=== PATIENT | male | born 1970 | race Caucasian/White ===

== ENCOUNTER 2016-09-06 12:10 | Inpatient (IN) | payer OTHER ==
[2016-09-06 13:25] VITALS: BMI 25.8
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
[2016-09-06] MEDS ORDERED: P-EPHED 60MG/TRIPROLIDI 2.5MG TABLET PO PRN (15:18)
[2016-09-06] MEDS ORDERED: guaiFENesin/D-METHORPHAN HB 10 ML UNIT-DOSE CUPS PO PRN (15:18)
[2016-09-06] MEDS ORDERED: MENTHOL/PHENOL 1 EACH UD MM PRN (15:18)
[2016-09-06] MEDS ORDERED: IBUPROFEN 400 MG TABLET (FP) PO PRN (15:18)
[2016-09-06] MEDS ORDERED: MAGNESIUM CITRATE 300 ML BOTTLE PO PRN (15:18)
[2016-09-06] MEDS ORDERED: MAGNESIUM HYDROX 2400MG/30ML ORAL SUSPENSION 30 ML CUP PO PRN (15:18)
[2016-09-06] MEDS ORDERED: LOPERAMIDE HCL 2 MG CAPSULE PO PRN (15:18)
[2016-09-06] MEDS ORDERED: ACETAMINOPHEN 325 MG TABLET (FP) PO PRN (15:18)
[2016-09-06] MEDS ORDERED: METHADONE HCL 10 MG TABLET (FOR DETOX USE ONLY) PO ONE ×2 (15:38→23:00)
[2016-09-06] MEDS: diazePAM 5 MG TABLET PO PRN ×2 (17:25→22:53)
[2016-09-06] MEDS: OXYMETAZOLINE 0.05% NASAL SOLUTION 15 ML BOTTLE NS SCH (22:52)
[2016-09-06] MEDS: diphenhydrAMINE HCL 50 MG CAPSULE PO PRN (22:53)
[2016-09-06] MEDS: THIAMINE HCL 100 MG TABLET (FP) PO SCH (22:53)
[2016-09-07 02:30] LABS: URINE APPEARANCE CLEAR; URINE BILIRUBIN NEGATIVE (NEGATIVE); URINE BLOOD NEGATIVE (NEGATIVE); URINE COLOR LTYELLOW; URINE GLUCOSE (UA) NEGATIVE (NEGATIVE); URINE KETONE NEGATIVE (NEGATIVE); URINE LEUK ESTERASE NEGATIVE (NEGATIVE); URINE NITRITE NEGATIVE (NEGATIVE); URINE PROTEIN NEGATIVE (NEGATIVE); URINE UROBILINOGEN NEGATIVE E.U./dl (0.2-1.0)
[2016-09-07] MEDS: diazePAM 5 MG TABLET PO PRN ×4 (05:31→22:29)
[2016-09-07] MEDS: MAG HYDROX/AL HYDROX/SIMETH 30 ML UNIT-DOSE CUP PO PRN (05:32)
[2016-09-07] MEDS ORDERED: METHADONE HCL 10 MG TABLET (FOR DETOX USE ONLY) PO ONE (10:00)
[2016-09-07 10:20] LABS: MCHC 33.1 g/dl (32.0-35.9); MEAN CELL VOLUME 90.4 fl (80-96); MEAN PLT VOLUME 10.7 fl (7.5-11.1); PLATELET COUNT 197 K/MM3 (134-434); RDW 14.7 % (11.9-15.9); WHITE BLOOD COUNT 11.7 K/mm3 (4.0-10.0)
[2016-09-07] MEDS: PRENATAL VITAMINS W/ FOLIC ACID TABLET (FP) PO SCH (10:29)
[2016-09-07] MEDS: OXYMETAZOLINE 0.05% NASAL SOLUTION 15 ML BOTTLE NS SCH ×2 (10:29→22:29)
[2016-09-07] MEDS: NICOTINE 21 MG/24 HOURS TOPICAL PATCH TD SCH (10:30)
[2016-09-07 10:59] LABS: ALBUMIN 4.1 g/dl (3.4-5.0); ALK PHOS 119 U/L (45-117); ANION GAP 10 (8-16); BILIRUBIN,TOTAL 0.4 mg/dL (0.2-1.0); CALCIUM 8.8 mg/dL (8.5-10.1); CO2 27 mmol/L (21-32); CREATININE 0.7 mg/dL (0.7-1.3); GLUCOSE,RANDOM 106 mg/dL (74-106); SGOT/AST 39 U/L (15-37); SGPT/ALT 55 U/L (12-78); TOT PROT 7.1 g/dl (6.4-8.2)
--- NOTE | 2016-09-07 12:00 | CONSULT ---
[facility] Psychiatric Consult - Data Date of interview: 09/07/16 Admission source: [facility] Identifying data: This is 46 yo single male,unemployed,undomiciled admitted for detox from Heroin and Xanax. Substance Abuse History: Reports sniffing/IV heroin since 23 yo,5-8 bags daily, Xanax I mg daily since 44 yo.Most recent detox was in July 2016 at [facility]. Medical History: Significant for Hep C,H/O withdrawal Seuzures,H/O Nose fracture. Psychiatric History: Patient reports no previous psychiatric history.No suicidal attemtps,no psychiatric hospitalizations reported.He is c/o sleeping difficulties on and off,specially when he is abstinent.Medicated himself with Heroin to reduce sleeping problems. Physical/Sexual Abuse/Trauma History: denies Mental Status Exam - Mental Status Exam Alert and Oriented to: Time, Place, Person Cognitive Function: Grossly Intact Patient Appearance: Unkempt Mood: Euthymic Affect: Mood Congruent Patient Behavior: Cooperative Speech Pattern: Clear Voice Loudness: Normal Thought Process: Goal Oriented Thought Disorder: Not Present Hallucinations: Denies Suicidal Ideation: Denies Homicidal Ideation: Denies Insight/Judgement: Fair Sleep: Poorly Appetite: Fair Muscle strength/Tone: Normal Gait/Station: Normal Psychiatric Findings - Problem List ([place] 1, 2,3) (1) Opioid dependence with withdrawal Current Visit: Yes Status: Chronic (2) Nicotine dependence Current Visit: Yes Status: Chronic Qualifiers: Nicotine product type: cigarettes Substance use status: uncomplicated Qualified Code(s): F17.210 - Nicotine dependence, cigarettes, uncomplicated (3) Substance-induced sleep disorder Current Visit: Yes Status: Chronic (4) Alcohol dependence Current Visit: Yes Status: Chronic (5) Opioid dependence Current Visit: Yes Status: Chronic - Initial Treatment Plan Initial Treatment Plan: Benadryl 50 mg po hs PRN for insomnia. Will monitor progress.
--- NOTE | 2016-09-07 14:05 | PN ---
S CIWA - CIWA Score Nausea/Vomitin-Mild Nausea/No Vomiting Muscle Tremors: 4-Moderate,w/Arms Extend Anxiety: 3 Agitation: 2 Paroxysmal Sweats: 3 Orientation: 0-Oriented Tacttile Disturbances: 3-Moderate Itch/Numb/Burn Auditory Disturbances: 2-Mild Harshness/Frighten Visual Disturbances: 0-None Headache: 0-None Present CIWA-Ar Total Score: 18 BHS COWS - Scale Resting Pulse: 1= [place] 81-100 Sweatin=Flushed/Facial Moisture Restless Observation: 1= Difficult to Sit Still Pupil Size: 0= Normal to Room Light Bone or Joint Aches: 2= Severe Diffuse Aches Runny Nose/ Eye Tearin= Nasal Congestion GI Upset > 30mins: 1= Stomach Cramp Tremor Observation of Outstretched Hands: 2= Slight Tremor Visible Yawning Observation: 1= 1-2x During Session Anxiety or Irritability: 2=Irritable/Anxious Goose Flesh Skin: 3=Piloerection COWS Score: 16 BHS Progress Note (SOAP) Subjective: Tremors, Constipation, Sweating, Lower Back Ache. Objective: PATIENT A & O X 3, OBSERVED AMBULATING ON UNIT. NO ACUTE DISTRESS. 09/07/16 14:02 Vital Signs Temperature 97.2 F L 09/07/16 13:41 Pulse Rate 72 09/07/16 13:41 Respiratory Rate 20 09/07/16 13:41 Blood Pressure 114/76 09/07/16 13:41 O2 Sat by Pulse Oximetry (%) Laboratory Tests 09/07/16 09/07/16 09/07/16 00:14 06:00 06:00 WBC 11.7 H RBC 3.78 L Hgb 11.3 L Hct 34.2 L MCV 90.4 MCHC 33.1 RDW 14.7 Plt Count 197 MPV 10.7 D Sodium 138 Potassium 4.0 Chloride 101 Carbon Dioxide 27 Anion Gap 10 BUN 14 Creatinine 0.7 Creat Clearance w eGFR > 60 Random Glucose 106 Calcium 8.8 Total Bilirubin 0.4 D AST 39 H D ALT 55 D Alkaline Phosphatase 119 H D Total Protein 7.1 D Albumin 4.1 D Urine Color Ltyellow Urine Appearance Clear Urine pH 5.0 Ur Specific [place] 1.010 Urine Protein Negative Urine Glucose (UA) Negative Urine Ketones Negative Urine Blood Negative Urine Nitrite Negative Urine Bilirubin Negative Urine Urobilinogen Negative Ur Leukocyte Esterase Negative RPR Titer 09/07/16 06:00 WBC RBC Hgb Hct MCV MCHC RDW Plt Count MPV Sodium Potassium Chloride Carbon Dioxide Anion Gap BUN Creatinine Creat Clearance w eGFR Random Glucose Calcium Total Bilirubin AST ALT Alkaline Phosphatase Total Protein Albumin Urine Color Urine Appearance Urine pH Ur Specific [place] Urine Protein Urine Glucose (UA) Urine Ketones Urine Blood Urine Nitrite Urine Bilirubin Urine Urobilinogen Ur Leukocyte Esterase RPR Titer Nonreactive LABS NOTED. Assessment: 09/07/16 14:03 WITHDRAWAL SYMPTOMS. Plan: CONTINUE DETOX. REPEAT CBC ON 09/09/2016 FOR LOW ADMISSION CBC VALUES.
--- NOTE | 2016-09-07 15:52 | EKG ---
Test Reason : Blood Pressure : / mmHG Vent. Rate : 068 BPM Atrial Rate : 068 BPM P-R Int : 146 ms QRS Dur : 084 ms QT Int : 406 ms P-R-T Axes : 052 039 051 degrees QTc Int : 431 ms NORMAL SINUS RHYTHM NORMAL ECG NO PREVIOUS ECGS AVAILABLE Confirmed by CLAUDIA HOPKINS MD ([id number]) on 09/07/2016 3:52:35 PM Referred By: Confirmed By:CLAUDIA HOPKINS MD
[2016-09-07] MEDS: THIAMINE HCL 100 MG TABLET (FP) PO SCH (22:29)
[2016-09-07] MEDS: diphenhydrAMINE HCL 50 MG CAPSULE PO PRN (22:29)
[2016-09-08] MEDS: diazePAM 5 MG TABLET PO PRN ×4 (05:22→22:24)
[2016-09-08] MEDS ORDERED: METHADONE HCL 5 MG TABLET (FOR DETOX USE ONLY) PO ONE (10:00)
[2016-09-08] MEDS: PRENATAL VITAMINS W/ FOLIC ACID TABLET (FP) PO SCH (10:27)
[2016-09-08] MEDS: NICOTINE 21 MG/24 HOURS TOPICAL PATCH TD SCH (10:27)
[2016-09-08] MEDS: OXYMETAZOLINE 0.05% NASAL SOLUTION 15 ML BOTTLE NS SCH ×2 (10:27→22:24)
--- NOTE | 2016-09-08 13:03 | PN ---
S CIWA - CIWA Score Nausea/Vomitin Muscle Tremors: 3 Anxiety: 3 Agitation: 2 Paroxysmal Sweats: 3 Orientation: 0-Oriented Tacttile Disturbances: 3-Moderate Itch/Numb/Burn Auditory Disturbances: 0-None Visual Disturbances: 1-Very Mild Sensitivity Headache: 0-None Present CIWA-Ar Total Score: 18 BHS COWS - Scale Resting Pulse: 1= [place] 81-100 Sweatin=Flushed/Facial Moisture Restless Observation: 1= Difficult to Sit Still Pupil Size: 0= Normal to Room Light Bone or Joint Aches: 2= Severe Diffuse Aches Runny Nose/ Eye Tearin= Nasal Congestion GI Upset > 30mins: 2= Nausea/Diarrhea Tremor Observation of Outstretched Hands: 2= Slight Tremor Visible Yawning Observation: 1= 1-2x During Session Anxiety or Irritability: 2=Irritable/Anxious Goose Flesh Skin: 3=Piloerection COWS Score: 17 S Progress Note (SOAP) Subjective: Nausea, Sweating, Chills, Tremors, Gooseflesh. Objective: PT. A & O X 3, OBSERVED AMBULATING ON UNIT. NO ACUTE DISTRESS. 09/08/16 13:01 Vital Signs Temperature 96.7 F L 09/08/16 09:54 Pulse Rate 82 09/08/16 09:54 Respiratory Rate 18 09/08/16 09:54 Blood Pressure 112/85 09/08/16 09:54 O2 Sat by Pulse Oximetry (%) Laboratory Tests 09/07/16 09/07/16 09/07/16 00:14 06:00 06:00 WBC 11.7 H RBC 3.78 L Hgb 11.3 L Hct 34.2 L MCV 90.4 MCHC 33.1 RDW 14.7 Plt Count 197 MPV 10.7 D Sodium 138 Potassium 4.0 Chloride 101 Carbon Dioxide 27 Anion Gap 10 BUN 14 Creatinine 0.7 Creat Clearance w eGFR > 60 Random Glucose 106 Calcium 8.8 Total Bilirubin 0.4 D AST 39 H D ALT 55 D Alkaline Phosphatase 119 H D Total Protein 7.1 D Albumin 4.1 D Urine Color Ltyellow Urine Appearance Clear Urine pH 5.0 Ur Specific [place] 1.010 Urine Protein Negative Urine Glucose (UA) Negative Urine Ketones Negative Urine Blood Negative Urine Nitrite Negative Urine Bilirubin Negative Urine Urobilinogen Negative Ur Leukocyte Esterase Negative RPR Titer 09/07/16 06:00 WBC RBC Hgb Hct MCV MCHC RDW Plt Count MPV Sodium Potassium Chloride Carbon Dioxide Anion Gap BUN Creatinine Creat Clearance w eGFR Random Glucose Calcium Total Bilirubin AST ALT Alkaline Phosphatase Total Protein Albumin Urine Color Urine Appearance Urine pH Ur Specific [place] Urine Protein Urine Glucose (UA) Urine Ketones Urine Blood Urine Nitrite Urine Bilirubin Urine Urobilinogen Ur Leukocyte Esterase RPR Titer Nonreactive LABS NOTED. Assessment: 09/08/16 13:02 WITHDRAWAL SYMPTOMS. Plan: CONTINUE DETOX.
[2016-09-08] MEDS: MAG HYDROX/AL HYDROX/SIMETH 30 ML UNIT-DOSE CUP PO PRN (19:03)
[2016-09-08] MEDS: THIAMINE HCL 100 MG TABLET (FP) PO SCH (22:24)
[2016-09-08] MEDS: diphenhydrAMINE HCL 50 MG CAPSULE PO PRN (22:25)
[2016-09-09] MEDS: hydrOXYzine PAMOATE 25 MG CAPSULE (FP) PO PRN ×3 (01:30→22:27)
[2016-09-09] MEDS: diazePAM 5 MG TABLET PO PRN ×3 (02:38→11:35)
[2016-09-09] MEDS ORDERED: METHADONE HCL 5 MG TABLET (FOR DETOX USE ONLY) PO ONE (10:00)
[2016-09-09] MEDS: OXYMETAZOLINE 0.05% NASAL SOLUTION 15 ML BOTTLE NS SCH ×2 (10:22→22:25)
[2016-09-09] MEDS: PRENATAL VITAMINS W/ FOLIC ACID TABLET (FP) PO SCH (10:22)
[2016-09-09] MEDS: NICOTINE 21 MG/24 HOURS TOPICAL PATCH TD SCH (10:23)
[2016-09-09 10:42] LABS: BASOPHIL 1.1 % (0-2.0); MCH 29.5 pg (25.7-33.7); MCHC 32.9 g/dl (32.0-35.9); MEAN CELL VOLUME 89.7 fl (80-96); MEAN PLT VOLUME 10.2 fl (7.5-11.1); NEUTROPHILS 52.3 % (42.8-82.8); PLATELET COUNT 174 K/MM3 (134-434); RDW 14.7 % (11.9-15.9); WHITE BLOOD COUNT 8.5 K/mm3 (4.0-10.0)
--- NOTE | 2016-09-09 14:31 | PN ---
S Progress Note (SOAP) Subjective: Interrupted sleep, Nausea, H/A, Tremors, Sweating. Objective: PT. A & O X 2 (DISORIENTED ABOUT DAY / DATE). PT. OBSERVED AMBULATING ON UNIT. NO ACUTE DISTRESS. 09/09/16 14:28 Vital Signs Temperature 98.9 F 09/09/16 13:49 Pulse Rate 86 09/09/16 13:49 Respiratory Rate 20 09/09/16 13:49 Blood Pressure 101/82 09/09/16 13:49 O2 Sat by Pulse Oximetry (%) Laboratory Tests 09/07/16 09/07/16 09/07/16 00:14 06:00 06:00 WBC 11.7 H RBC 3.78 L Hgb 11.3 L Hct 34.2 L MCV 90.4 MCHC 33.1 RDW 14.7 Plt Count 197 MPV 10.7 D Neutrophils % Lymphocytes % Monocytes % Eosinophils % Basophils % Sodium 138 Potassium 4.0 Chloride 101 Carbon Dioxide 27 Anion Gap 10 BUN 14 Creatinine 0.7 Creat Clearance w eGFR > 60 Random Glucose 106 Calcium 8.8 Total Bilirubin 0.4 D AST 39 H D ALT 55 D Alkaline Phosphatase 119 H D Total Protein 7.1 D Albumin 4.1 D Urine Color Ltyellow Urine Appearance Clear Urine pH 5.0 Ur Specific [place] 1.010 Urine Protein Negative Urine Glucose (UA) Negative Urine Ketones Negative Urine Blood Negative Urine Nitrite Negative Urine Bilirubin Negative Urine Urobilinogen Negative Ur Leukocyte Esterase Negative RPR Titer 09/07/16 09/09/16 06:00 09:10 WBC 8.5 RBC 4.17 Hgb 12.3 Hct 37.4 MCV 89.7 MCHC 32.9 RDW 14.7 Plt Count 174 MPV 10.2 Neutrophils % 52.3 Lymphocytes % 32.2 Monocytes % 12.4 H Eosinophils % 2.0 Basophils % 1.1 Sodium Potassium Chloride Carbon Dioxide Anion Gap BUN Creatinine Creat Clearance w eGFR Random Glucose Calcium Total Bilirubin AST ALT Alkaline Phosphatase Total Protein Albumin Urine Color Urine Appearance Urine pH Ur Specific [place] Urine Protein Urine Glucose (UA) Urine Ketones Urine Blood Urine Nitrite Urine Bilirubin Urine Urobilinogen Ur Leukocyte Esterase RPR Titer Nonreactive LABS NOTED. RESULTS OF REPEAT CBC DRAWN 09/09/2016 NOTED. NO NEED FOR FURTHER ACTION AT THIS TIME. 09/09/16 14:30 Assessment: 09/09/16 14:29 WITHDRAWAL SYMPTOMS. 09/09/16 14:31 Plan: CONTINUE DETOX.
[2016-09-09] MEDS: THIAMINE HCL 100 MG TABLET (FP) PO SCH (22:26)
[2016-09-10] MEDS: hydrOXYzine PAMOATE 25 MG CAPSULE (FP) PO PRN ×4 (05:32→18:55)
[2016-09-10] MEDS ORDERED: METHADONE HCL 10 MG TABLET (FOR DETOX USE ONLY) PO ONE (10:00)
[2016-09-10] MEDS: PRENATAL VITAMINS W/ FOLIC ACID TABLET (FP) PO SCH (10:23)
[2016-09-10] MEDS: OXYMETAZOLINE 0.05% NASAL SOLUTION 15 ML BOTTLE NS SCH ×2 (10:23→22:11)
[2016-09-10] MEDS: NICOTINE 21 MG/24 HOURS TOPICAL PATCH TD SCH (11:04)
--- NOTE | 2016-09-10 12:45 | PN ---
BHS Progress Note (SOAP) Subjective: Interrupted sleep, weak, anxious, sweating Objective: 09/10/16 12:42 Last Vital Signs Temp Pulse Resp BP Pulse Ox 96.4 F L 94 H 18 131/93 09/10/16 11:04 09/10/16 11:04 09/10/16 11:04 09/10/16 11:04 Laboratory Tests 09/07/16 09/07/16 09/07/16 00:14 06:00 06:00 WBC 11.7 H RBC 3.78 L Hgb 11.3 L Hct 34.2 L MCV 90.4 MCHC 33.1 RDW 14.7 Plt Count 197 MPV 10.7 D Neutrophils % Lymphocytes % Monocytes % Eosinophils % Basophils % Sodium 138 Potassium 4.0 Chloride 101 Carbon Dioxide 27 Anion Gap 10 BUN 14 Creatinine 0.7 Creat Clearance w eGFR > 60 Random Glucose 106 Calcium 8.8 Total Bilirubin 0.4 D AST 39 H D ALT 55 D Alkaline Phosphatase 119 H D Total Protein 7.1 D Albumin 4.1 D Urine Color Ltyellow Urine Appearance Clear Urine pH 5.0 Ur Specific [place] 1.010 Urine Protein Negative Urine Glucose (UA) Negative Urine Ketones Negative Urine Blood Negative Urine Nitrite Negative Urine Bilirubin Negative Urine Urobilinogen Negative Ur Leukocyte Esterase Negative RPR Titer 09/07/16 09/09/16 06:00 09:10 WBC 8.5 RBC 4.17 Hgb 12.3 Hct 37.4 MCV 89.7 MCHC 32.9 RDW 14.7 Plt Count 174 MPV 10.2 Neutrophils % 52.3 Lymphocytes % 32.2 Monocytes % 12.4 H Eosinophils % 2.0 Basophils % 1.1 Sodium Potassium Chloride Carbon Dioxide Anion Gap BUN Creatinine Creat Clearance w eGFR Random Glucose Calcium Total Bilirubin AST ALT Alkaline Phosphatase Total Protein Albumin Urine Color Urine Appearance Urine pH Ur Specific [place] Urine Protein Urine Glucose (UA) Urine Ketones Urine Blood Urine Nitrite Urine Bilirubin Urine Urobilinogen Ur Leukocyte Esterase RPR Titer Nonreactive Labs noted Assessment: 09/10/16 12:43 Withdrawal symptoms Plan: Continue detox Encouraged to drink lots of water
[2016-09-10] MEDS: diphenhydrAMINE HCL 50 MG CAPSULE PO PRN (22:11)
[2016-09-10] MEDS: THIAMINE HCL 100 MG TABLET (FP) PO SCH (22:11)
[2016-09-11] MEDS: hydrOXYzine PAMOATE 25 MG CAPSULE (FP) PO PRN ×2 (01:55→06:05)
[2016-09-11] MEDS ORDERED: METHADONE HCL 5 MG TABLET (FOR DETOX USE ONLY) PO ONE (06:00)
[2016-09-11 08:51] VITALS: BP 111/86; PULSE 104; TEMP 97
[2016-09-11] MEDS: PRENATAL VITAMINS W/ FOLIC ACID TABLET (FP) PO SCH (09:47)
[2016-09-11] MEDS: NICOTINE 21 MG/24 HOURS TOPICAL PATCH TD SCH (09:47)
[2016-09-11] MEDS: OXYMETAZOLINE 0.05% NASAL SOLUTION 15 ML BOTTLE NS SCH (09:47)
--- NOTE | 2016-09-11 12:23 | DS ---
[facility] Detox Discharge Summary Admission Date: 09/06/16 Discharge Date: 09/11/16 - History Present History: Opioid Dependence, Sedative Dependence Additional Comments: ADVISED PATIENT TO FOLLOW-UP WITH AFTERCARE AT [facility] PER ARRANGEMENT. Pertinent Past History: Hypercholesterolemia, Seizures (Due to Drug Withdrawal), Hep A, Hep C (Treated). - Physical Exam Results Vital Signs: Vital Signs Temperature 97.0 F L 09/11/16 08:51 Pulse Rate 104 H 09/11/16 08:51 Respiratory Rate 20 09/11/16 08:51 Blood Pressure 111/86 09/11/16 08:51 O2 Sat by Pulse Oximetry (%) Pertinent Admission Physical Exam Findings: WITHDRAWAL SYMPTOMS. Laboratory Tests 09/07/16 09/07/16 09/07/16 00:14 06:00 06:00 WBC 11.7 H RBC 3.78 L Hgb 11.3 L Hct 34.2 L MCV 90.4 MCHC 33.1 RDW 14.7 Plt Count 197 MPV 10.7 D Neutrophils % Lymphocytes % Monocytes % Eosinophils % Basophils % Sodium 138 Potassium 4.0 Chloride 101 Carbon Dioxide 27 Anion Gap 10 BUN 14 Creatinine 0.7 Creat Clearance w eGFR > 60 Random Glucose 106 Calcium 8.8 Total Bilirubin 0.4 D AST 39 H D ALT 55 D Alkaline Phosphatase 119 H D Total Protein 7.1 D Albumin 4.1 D Urine Color Ltyellow Urine Appearance Clear Urine pH 5.0 Ur Specific [place] 1.010 Urine Protein Negative Urine Glucose (UA) Negative Urine Ketones Negative Urine Blood Negative Urine Nitrite Negative Urine Bilirubin Negative Urine Urobilinogen Negative Ur Leukocyte Esterase Negative RPR Titer 09/07/16 09/09/16 06:00 09:10 WBC 8.5 RBC 4.17 Hgb 12.3 Hct 37.4 MCV 89.7 MCHC 32.9 RDW 14.7 Plt Count 174 MPV 10.2 Neutrophils % 52.3 Lymphocytes % 32.2 Monocytes % 12.4 H Eosinophils % 2.0 Basophils % 1.1 Sodium Potassium Chloride Carbon Dioxide Anion Gap BUN Creatinine Creat Clearance w eGFR Random Glucose Calcium Total Bilirubin AST ALT Alkaline Phosphatase Total Protein Albumin Urine Color Urine Appearance Urine pH Ur Specific [place] Urine Protein Urine Glucose (UA) Urine Ketones Urine Blood Urine Nitrite Urine Bilirubin Urine Urobilinogen Ur Leukocyte Esterase RPR Titer Nonreactive LABS NOTED. - Treatment Hospital Course: Detox Protocol Followed, Detoxed Safely, Responded well, Discharged Condition Good, Rehab Referral Accepted Patient has Accepted a Rehab Referral to: [facility]. - Medication Discharge Medications: Ambulatory Orders Oxymetazoline 0.05% Nasal Soln [Afrin -] 2 spray NS BID 09/06/16 - Diagnosis (1) Fractured nose Current Visit: Yes Status: Acute Qualifiers: Encounter type: sequela Fracture type: closed Qualified Code(s) : S02.2XXS - Fracture of nasal bones, sequela (2) Insomnia Current Visit: Yes Status: Acute Qualifiers: Insomnia type: unspecified Qualified Code(s): G47.00 - Insomnia, unspecified (3) Uncomplicated sedative, hypnotic, or anxiolytic withdrawal Current Visit: Yes Status: Acute (4) Nicotine dependence Current Visit: Yes Status: Chronic Qualifiers: Nicotine product type: cigarettes Substance use status: uncomplicated Qualified Code(s): F17.210 - Nicotine dependence, cigarettes, uncomplicated (5) Opioid dependence with withdrawal Current Visit: Yes Status: Acute (6) Substance-induced sleep disorder Current Visit: Yes Status: Acute (7) Withdrawal seizures Current Visit: No Status: Chronic Qualifiers: Complication of substance-induced condition: with unspecified complication Qualified Code(s): F19.239 - Other psychoactive substance dependence with withdrawal, unspecified; R56.9 - Unspecified convulsions - AMA Did Patient Leave Against Medical Advice: No
== END 2016-09-11 12:46 | disposition other institution (70) | DRG 773 ==
LOC: YASAS 12:10 → Y3N 14:58
PROVIDERS: ADMIT Internal Medicine; ATTEND Internal Medicine
PROC: HZ2ZZZZ Detoxification Services for Substance Abuse Treatment (ICD-10-PCS; principal; 2016-09-06)
DX: F11.23 Opioid dependence with withdrawal (principal); F13.230 Sedative, hypnotic or anxiolytic dependence with withdrawal, uncomplicated; F17.210 Nicotine dependence, cigarettes, uncomplicated; F19.282 Other psychoactive substance dependence with psychoactive substance-induced sleep disorder; G47.00 Insomnia, unspecified; B18.2 Chronic viral hepatitis C; Z86.69 Personal history of other diseases of the nervous system and sense organs; Z87.81 Personal history of (healed) traumatic fracture
CPT/HCPCS: 36415; 80053; 81003; 85025; 85027; 86593; 93005; 93010

== ENCOUNTER 2016-09-11 12:51 | Inpatient (IN) | payer OTHER ==
[2016-09-11] MEDS ORDERED: NICOTINE 14 MG/24 HOURS TOPICAL PATCH TD PRN (16:30)
[2016-09-11] MEDS ORDERED: diphenhydrAMINE HCL 50 MG CAPSULE PO PRN (16:30)
[2016-09-11] MEDS ORDERED: MAGNESIUM CITRATE 300 ML BOTTLE PO PRN (16:30)
[2016-09-11] MEDS ORDERED: LOPERAMIDE HCL 2 MG CAPSULE PO PRN (16:30)
[2016-09-11] MEDS ORDERED: MAGNESIUM HYDROX 2400MG/30ML ORAL SUSPENSION 30 ML CUP PO PRN (16:30)
[2016-09-11] MEDS ORDERED: guaiFENesin/D-METHORPHAN HB 10 ML UNIT-DOSE CUPS PO PRN (16:30)
[2016-09-11] MEDS ORDERED: IBUPROFEN 400 MG TABLET (FP) PO PRN (16:30)
[2016-09-11] MEDS ORDERED: MENTHOL/PHENOL 1 EACH UD MM PRN (16:30)
[2016-09-11] MEDS ORDERED: P-EPHED 60MG/TRIPROLIDI 2.5MG TABLET PO PRN (16:30)
[2016-09-11] MEDS ORDERED: MAG HYDROX/AL HYDROX/SIMETH 30 ML UNIT-DOSE CUP PO PRN (16:30)
[2016-09-11] MEDS ORDERED: ACETAMINOPHEN 325 MG TABLET (FP) PO PRN (16:30)
[2016-09-11] MEDS ORDERED: NICOTINE POLACRILEX 2 MG GUM BUC PRN (16:30)
--- NOTE | 2016-09-11 16:30 | HP ---
[facility] Rehab Assess/Revision - Admission History Admitted to Rehab from: [facility] Date of Admission to Rehab: 09/11/16 - Findings Detox History & Physical reviewed: Yes Concur with findings: Yes Comments/Additional Findings: TRANSFERRED FROM DETOX TO REHAB ADMISSION PER PROTOCOL
[2016-09-11] MEDS: OXYMETAZOLINE 0.05% NASAL SOLUTION 15 ML BOTTLE NS SCH (21:38)
[2016-09-11] MEDS: THIAMINE HCL 100 MG TABLET (FP) PO SCH (21:39)
[2016-09-12] MEDS: hydrOXYzine PAMOATE 50 MG CAPSULE (FP) PO PRN ×3 (06:45→16:08)
[2016-09-12] MEDS: PRENATAL VITAMINS W/ FOLIC ACID TABLET (FP) PO SCH (10:02)
[2016-09-12] MEDS: OXYMETAZOLINE 0.05% NASAL SOLUTION 15 ML BOTTLE NS SCH ×2 (10:45→21:31)
--- NOTE | 2016-09-12 11:17 | HP ---
Psychiatrist Admission - Data Date of interview: 09/12/16 Admission source: 3N Identifying data: This is the first 5N inpatient rehabilitation admission for this 46 year old male father of one, unemployed and residing with his father in [place]. Medical History: Hep C reported he was treated in year 2000, drug related seizures 07/02,. nasal congestion due s/p nasal fracture in 1992. Smokes cigarettes 5 a day. Psychiatric History: Patient reports no history of psychiatric treatment, however he has a few scars on his left arm ,when asked reported he cut self to get attention from his girlfriend back in [facility] when he was 18 year old. He is complaining of sleeping difficulties, worsened when he is abstinent. Medicated himself with Heroin to reduce sleeping problems. Physical/Sexual Abuse/Trauma History: Patient denies history of sexual, physical and verbal abuse. Vital Signs: Vital Signs - 24 hr 09/12/16 09/12/16 09/12/16 00:46 03:30 06:55 Temperature 97.7 F Pulse Rate 91 H Respiratory 16 16 18 Rate Blood Pressure 91/66 09/12/16 10:10 Temperature 98.2 F Pulse Rate 109 H Respiratory 16 Rate Blood Pressure 113/65 Allergies/Adverse Reactions: Allergies Allergy/AdvReac Type Severity Reaction Status Date / Time No Known Allergies Allergy Verified 09/11/16 13:35 Date of last physical exam: 09/07/16 Concur with the findings of this exam: Yes - Substance Abuse/Tx History Hx Alcohol Use: No Hx Substance Use: Yes Substance Use Type: Heroin (sniffing/IV heroin since 23 yo,5-8 bags daily,), Tranquilizers (xanax 0.5-1 mg ) Hx Substance Use Treatment: Yes - Admission Criteria Previous failed treatment: Yes Poor recovery environment: Yes Comorbidities: No Lacks judgement: Yes Mental Status Exam - Mental Status Exam Alert and Oriented to: Time, Place, Person Cognitive Function: Good Patient Appearance: Well Groomed Mood: Sad Affect: Appropriate Patient Behavior: Appropriate, Cooperative Speech Pattern: Clear, Appropriate Voice Loudness: Normal Thought Process: Intact Thought Disorder: Not Present Hallucinations: None Suicidal Ideation: None Homicidal Ideation: None Insight/Judgement: Good Sleep: Poorly, Difficulty falling asleep Appetite: Fair Muscle strength/Tone: Normal Gait/Station: Normal Psychiatric Findings - Problem List ([place] 1, 2,3) (1) Substance-induced sleep disorder Current Visit: No Status: Acute (2) Nicotine dependence Current Visit: No Status: Chronic Qualifiers: Nicotine product type: cigarettes Substance use status: uncomplicated Qualified Code(s): F17.210 - Nicotine dependence, cigarettes, uncomplicated (3) Opioid dependence Current Visit: No Status: Chronic (4) Sedative hypnotic or anxiolytic dependence Current Visit: Yes Status: Acute - Initial Treatment Plan Initial Treatment Plan: Will add Vistaril 75 mg po hs,monitor progress as needed.
[2016-09-12] MEDS: THIAMINE HCL 100 MG TABLET (FP) PO SCH (21:32)
[2016-09-12] MEDS: hydrOXYzine PAMOATE 25 MG CAPSULE (FP) PO PRN (21:33)
[2016-09-13] MEDS: hydrOXYzine PAMOATE 50 MG CAPSULE (FP) PO PRN ×2 (06:13→11:16)
[2016-09-13 06:34] VITALS: PULSE 86
[2016-09-13] MEDS: OXYMETAZOLINE 0.05% NASAL SOLUTION 15 ML BOTTLE NS SCH ×2 (10:08→21:22)
[2016-09-13] MEDS: PRENATAL VITAMINS W/ FOLIC ACID TABLET (FP) PO SCH (10:08)
[2016-09-13] MEDS: THIAMINE HCL 100 MG TABLET (FP) PO SCH (21:22)
[2016-09-13] MEDS: hydrOXYzine PAMOATE 25 MG CAPSULE (FP) PO PRN (21:24)
[2016-09-14 06:18] VITALS: BP 110/79; TEMP 98.1
[2016-09-14] MEDS: PRENATAL VITAMINS W/ FOLIC ACID TABLET (FP) PO SCH (09:14)
[2016-09-14] MEDS: OXYMETAZOLINE 0.05% NASAL SOLUTION 15 ML BOTTLE NS SCH (09:14)
--- NOTE | 2016-09-14 09:59 | PN ---
Psychiatric Progress Note Vital Signs: Vital Signs Period Temp Pulse Resp BP Sys/Mcdaniel Pulse Ox Last 24 Hr 98.1 F 86 18-18 110/79 Date of Session: 09/14/16 Chief Complaint:: leaving AMA. ROS: WNL Current Medications: Active Medications Generic Name Dose Route Start Last Admin Trade Name Freq PRN Reason Stop Dose Admin Acetaminophen 650 mg 09/11/16 16:30 Tylenol - PO Q4H PRN FEVER OR PAIN Al Hydroxide/Mg Hydroxide 30 ml 09/11/16 16:30 Mylanta Oral Suspension - PO Q6H PRN DYSPEPSIA Eucalyptus/Menthol/Phenol/Sorbitol 1 each 09/11/16 16:30 Cepastat Lozenge - MM Q4H PRN SORE THROAT Guaifenesin 10 ml 09/11/16 16:30 Robitussin Dm - PO Q6H PRN COUGH Hydroxyzine Pamoate 50 mg 09/12/16 06:39 09/13/16 11:16 Vistaril - PO 50 mg Q6H PRN Administration FOR ITCHING Hydroxyzine Pamoate 75 mg 09/12/16 22:00 09/13/16 21:24 Vistaril - PO 75 mg HS PRN Administration INSOMNIA Ibuprofen 400 mg 09/11/16 16:30 Motrin - PO Q6H PRN PAIN Loperamide HCl 4 mg 09/11/16 16:30 Imodium - PO Q6H PRN DIARRHEA Magnesium Hydroxide 30 ml 09/11/16 16:30 Milk Of Magnesia - PO DAILY PRN CONSTIPATION Nicotine 14 mg 09/11/16 16:30 Nicoderm Patch - TD DAILY PRN WITHDRAWAL(CONT SUBST) Nicotine Polacrilex 2 mg 09/11/16 16:30 Nicorette Gum - BUC Q2H PRN NICOTINE REPLACEMENT RX Oxymetazoline HCl 2 spray 09/11/16 22:00 09/14/16 09:14 Afrin - NS Not Given BID GARRISON Multivit/Folic Acid/Iron 1 tab 09/12/16 10:00 09/14/16 09:14 Vitamins ([facility]) - PO Not Given DAILY GARRISON Pseudoephedrine/Triprolidine 1 combo 09/11/16 16:30 Actifed - PO TID PRN NASAL CONGESTION Thiamine HCl 100 mg 09/11/16 22:00 09/13/16 21:22 Vitamin B1 - PO 100 mg HS GARRISON Administration Current Side Effect: No Lab tests ordered: No Lab tests reviewed: Yes Provider note:: Patient decided to leave treatment AMA, met with the patient to explore reasons for terminating treatment at this time. Patient reports he has no craving for drugs and thinks he is ready to go, "I am good and I don't need to stay here" Patient was encouraged to stay and continue treatment, but adamant to leave. Patient is stable for AMA discharge today. Patient was reffered to [facility]. Total face to face time:: 35 Mental Status Exam - Mental Status Exam Alert and Oriented to: Time, Place, Person Cognitive Function: Good Patient Appearance: Well Groomed Mood: Hopeful Affect: Appropriate, Mood Congruent Patient Behavior: Appropriate, Cooperative Speech Pattern: Clear, Appropriate Voice Loudness: Normal Thought Process: Intact, Goal Oriented Thought Disorder: Not Present Hallucinations: Denies Suicidal Ideation: Denies Homicidal Ideation: Denies Insight/Judgement: Fair Sleep: Fair Appetite: Fair Muscle strength/Tone: Normal Gait/Station: Normal Psychiatric Treatment Plan - Problem List (1) Substance-induced sleep disorder Current Visit: No (2) Nicotine dependence Current Visit: No Qualifiers: Nicotine product type: cigarettes Substance use status: uncomplicated Qualified Code(s): F17.210 - Nicotine dependence, cigarettes, uncomplicated (3) Opioid dependence Current Visit: No (4) Sedative hypnotic or anxiolytic dependence Current Visit: Yes
== END 2016-09-14 10:30 | disposition left against medical advice (07) | DRG 770 ==
LOC: YASAS 12:51 → Y5N 12:52
PROVIDERS: ADMIT Psychiatry & Neurology Psychiatry; ATTEND Psychiatry & Neurology Psychiatry
PROC: HZ42ZZZ Group Counseling for Substance Abuse Treatment, Cognitive-Behavioral (ICD-10-PCS; principal; 2016-09-14)
DX: F10.20 Alcohol dependence, uncomplicated (principal); F13.20 Sedative, hypnotic or anxiolytic dependence, uncomplicated; F17.210 Nicotine dependence, cigarettes, uncomplicated; F19.282 Other psychoactive substance dependence with psychoactive substance-induced sleep disorder

== ENCOUNTER 2020-01-27 11:18 | Inpatient (IN) | payer OTHER ==
[2020-01-27 12:15] VITALS: BMI 29.0
[2020-01-27] MEDS ORDERED: METHOCARBAMOL 500 MG TABLET PO PRN (12:53)
[2020-01-27] MEDS ORDERED: MAGNESIUM CITRATE 300 ML BOTTLE PO PRN (12:53)
[2020-01-27] MEDS ORDERED: MENTHOL/PHENOL 1 EACH UD MM PRN (12:53)
[2020-01-27] MEDS ORDERED: NICOTINE POLACRILEX 2 MG GUM BUC PRN (12:53)
[2020-01-27] MEDS ORDERED: ONDANSETRON *ODT* 4 MG TABLET SL PRN (12:53)
[2020-01-27] MEDS ORDERED: diazePAM 5 MG TABLET PO PRN (12:53)
[2020-01-27] MEDS ORDERED: IBUPROFEN 400 MG TABLET (FP) PO PRN (12:53)
[2020-01-27] MEDS ORDERED: BISMUTH SUBSALICYLATE 524 MG/30 ML UD PO PRN (12:53)
[2020-01-27] MEDS ORDERED: ACETAMINOPHEN 325 MG TABLET (FP) PO PRN ×2 (12:53)
[2020-01-27] MEDS ORDERED: cloNIDine HCL 0.1 MG TABLET PO PRN (12:53)
[2020-01-27] MEDS: hydrOXYzine PAMOATE 25 MG CAPSULE (FP) PO SCH ×3 (13:47→22:44)
[2020-01-27] MEDS ORDERED: METHADONE HCL 10 MG TABLET (FOR DETOX USE ONLY) PO ONE (14:00)
[2020-01-27 14:41] LABS: POTASSIUM 4.4 mmol/L (3.5-5.1)
[2020-01-27 14:44] LABS: ALBUMIN 4.3 g/dl (3.4-5.0); CALCIUM 9.4 mg/dL (8.5-10.1)
[2020-01-27 14:45] LABS: BLOOD UREA NITROGEN 10.5 mg/dL (7-18)
[2020-01-27 14:47] LABS: CREATININE 0.7 mg/dL (0.55-1.3)
[2020-01-27 14:49] LABS: BILIRUBIN,TOTAL 0.9 mg/dL (0.2-1); TOT PROT 7.8 g/dl (6.4-8.2)
[2020-01-27 14:57] LABS: HEMATOCRIT 35.5 % (35.4-49); HEMOGLOBIN 11.2 GM/dL (11.7-16.9); MCH 28.6 pg (25.7-33.7); MCHC 31.5 g/dl (32.0-35.9); MEAN CELL VOLUME 90.6 fl (80-96); MEAN PLT VOLUME 10.3 fl (7.5-11.1); PLATELET COUNT 233 K/MM3 (134-434); RBC 3.92 M/mm3 (4.00-5.60); RDW 14.6 % (11.9-15.9); WHITE BLOOD COUNT 11.4 K/mm3 (4.0-10.0)
[2020-01-27] MEDS: diazePAM 5 MG TABLET PO SCH ×2 (17:45→22:44)
[2020-01-27] MEDS ORDERED: MELATONIN 5 MG TABLETS PO SCH (22:00)
[2020-01-27] MEDS: OXYMETAZOLINE 0.05% NASAL SOLUTION 15 ML BOTTLE NS SCH (22:43)
[2020-01-27] MEDS: THIAMINE HCL 100 MG TABLET (FP) PO SCH (22:44)
[2020-01-28] MEDS: diazePAM 5 MG TABLET PO SCH ×4 (05:41→22:15)
[2020-01-28] MEDS: hydrOXYzine PAMOATE 25 MG CAPSULE (FP) PO SCH (05:42)
[2020-01-28] MEDS ORDERED: hydrOXYzine PAMOATE 50 MG CAPSULE (FP) PO PRN (09:08)
[2020-01-28] MEDS ORDERED: METHADONE HCL 5 MG TABLET (FOR DETOX USE ONLY) ONE (09:48)
[2020-01-28] MEDS ORDERED: METHADONE HCL 10 MG TABLET (FOR DETOX USE ONLY) ONE (09:49)
[2020-01-28] MEDS ORDERED: METHADONE (DETOX) 20 MG, METHADONE (DETOX) 5 MG PO ONE (10:00)
[2020-01-28] MEDS: MAGNESIUM HYDROX 2400MG/30ML ORAL SUSPENSION 30 ML CUP PO PRN ×2 (11:13→22:18)
[2020-01-28] MEDS: OXYMETAZOLINE 0.05% NASAL SOLUTION 15 ML BOTTLE NS SCH ×2 (11:14→22:16)
[2020-01-28] MEDS: NICOTINE 14 MG/24 HOURS TOPICAL PATCH TD SCH (11:14)
[2020-01-28] MEDS: PRENATAL VITAMINS W/ FOLIC ACID TABLET (FP) PO SCH (11:14)
[2020-01-28] MEDS ORDERED: SUVOREXANT 10 MG TABLET PO PRN (22:00)
[2020-01-28] MEDS: THIAMINE HCL 100 MG TABLET (FP) PO SCH (22:15)
[2020-01-29] MEDS: diazePAM 5 MG TABLET PO SCH ×3 (05:47→22:27)
[2020-01-29] MEDS ORDERED: METHADONE HCL 10 MG TABLET (FOR DETOX USE ONLY) PO ONE (10:00)
[2020-01-29 10:19] LABS: HEMATOCRIT 39.4 % (35.4-49); HEMOGLOBIN 12.6 GM/dL (11.7-16.9); MCH 28.8 pg (25.7-33.7); MCHC 32.1 g/dl (32.0-35.9); MEAN CELL VOLUME 89.6 fl (80-96); MEAN PLT VOLUME 10.1 fl (7.5-11.1); PLATELET COUNT 219 K/MM3 (134-434); RBC 4.39 M/mm3 (4.00-5.60); RDW 14.8 % (11.9-15.9); WHITE BLOOD COUNT 10.2 K/mm3 (4.0-10.0)
[2020-01-29] MEDS: OXYMETAZOLINE 0.05% NASAL SOLUTION 15 ML BOTTLE NS SCH ×2 (10:36→22:27)
[2020-01-29] MEDS: MAGNESIUM HYDROX 2400MG/30ML ORAL SUSPENSION 30 ML CUP PO PRN (10:36)
[2020-01-29] MEDS: NICOTINE 14 MG/24 HOURS TOPICAL PATCH TD SCH (10:37)
[2020-01-29] MEDS: PRENATAL VITAMINS W/ FOLIC ACID TABLET (FP) PO SCH (10:37)
[2020-01-29] MEDS: THIAMINE HCL 100 MG TABLET (FP) PO SCH (22:27)
[2020-01-30] MEDS: diazePAM 5 MG TABLET PO SCH ×2 (05:52→17:50)
[2020-01-30] MEDS ORDERED: METHADONE HCL 10 MG TABLET (FOR DETOX USE ONLY) ONE (09:22)
[2020-01-30] MEDS ORDERED: METHADONE HCL 5 MG TABLET (FOR DETOX USE ONLY) ONE (09:22)
[2020-01-30] MEDS ORDERED: HYDROCORTISONE 2.5% LOTION - 1 BOTTLE TP ONE (09:47)
[2020-01-30] MEDS ORDERED: METHADONE (DETOX) 10 MG, METHADONE (DETOX) 5 MG PO ONE (10:00)
[2020-01-30] MEDS: PRENATAL VITAMINS W/ FOLIC ACID TABLET (FP) PO SCH (10:04)
[2020-01-30] MEDS: OXYMETAZOLINE 0.05% NASAL SOLUTION 15 ML BOTTLE NS SCH ×2 (10:04→22:24)
[2020-01-30] MEDS: NICOTINE 14 MG/24 HOURS TOPICAL PATCH TD SCH (10:05)
[2020-01-30] MEDS: THIAMINE HCL 100 MG TABLET (FP) PO SCH (22:24)
[2020-01-31] MEDS ORDERED: diazePAM 5 MG TABLET PO ONE (06:00)
[2020-01-31] MEDS ORDERED: METHADONE HCL 10 MG TABLET (FOR DETOX USE ONLY) PO ONE (10:00)
[2020-01-31] MEDS: NICOTINE 14 MG/24 HOURS TOPICAL PATCH TD SCH (10:34)
[2020-01-31] MEDS: PRENATAL VITAMINS W/ FOLIC ACID TABLET (FP) PO SCH (10:34)
[2020-01-31] MEDS: OXYMETAZOLINE 0.05% NASAL SOLUTION 15 ML BOTTLE NS SCH ×2 (10:34→22:27)
[2020-01-31] MEDS: MAG HYDROX/AL HYDROX/SIMETH 30 ML UNIT-DOSE CUP PO PRN (12:02)
[2020-01-31] MEDS: PANTOPRAZOLE 20 MG TABLET PO SCH (14:07)
[2020-01-31] MEDS: THIAMINE HCL 100 MG TABLET (FP) PO SCH (22:27)
[2020-02-01] MEDS ORDERED: METHADONE HCL 5 MG TABLET (FOR DETOX USE ONLY) PO ONE (06:00)
[2020-02-01] MEDS: MAG HYDROX/AL HYDROX/SIMETH 30 ML UNIT-DOSE CUP PO PRN (07:29)
[2020-02-01] MEDS: PRENATAL VITAMINS W/ FOLIC ACID TABLET (FP) PO SCH (09:00)
[2020-02-01] MEDS: PANTOPRAZOLE 20 MG TABLET PO SCH (09:00)
[2020-02-01] MEDS: NICOTINE 14 MG/24 HOURS TOPICAL PATCH TD SCH (09:01)
[2020-02-01] MEDS: OXYMETAZOLINE 0.05% NASAL SOLUTION 15 ML BOTTLE NS SCH (09:01)
[2020-02-01 09:23] VITALS: BP 145/94; PULSE 96; TEMP 97.8
== END 2020-02-01 10:30 | disposition home or self-care (01) | DRG 773 ==
LOC: YASAS 11:18 → Y6N 12:25
PROVIDERS: ADMIT Allergy & Immunology; ATTEND Allergy & Immunology
PROC: HZ2ZZZZ Detoxification Services for Substance Abuse Treatment (ICD-10-PCS; principal; 2020-01-27)
DX: F11.23 Opioid dependence with withdrawal (principal); F13.20 Sedative, hypnotic or anxiolytic dependence, uncomplicated; F17.210 Nicotine dependence, cigarettes, uncomplicated; F19.280 Other psychoactive substance dependence with psychoactive substance-induced anxiety disorder; F19.282 Other psychoactive substance dependence with psychoactive substance-induced sleep disorder; E78.5 Hyperlipidemia, unspecified; R03.0 Elevated blood-pressure reading, without diagnosis of hypertension; R74.8 Abnormal levels of other serum enzymes; Z86.19 Personal history of other infectious and parasitic diseases; Z85.828 Personal history of other malignant neoplasm of skin; Z86.69 Personal history of other diseases of the nervous system and sense organs; Z90.49 Acquired absence of other specified parts of digestive tract; Z87.81 Personal history of (healed) traumatic fracture; Z91.5 Personal history of self-harm
CPT/HCPCS: 36415; 80053; 82947; 85027; 86780; C9803; U0003

== ENCOUNTER 2020-04-26 11:57 | Inpatient (IN) | payer OTHER ==
[2020-04-26 13:22] VITALS: BMI 30.4
[2020-04-26] MEDS ORDERED: ONDANSETRON *ODT* 4 MG TABLET SL PRN (13:55)
[2020-04-26] MEDS ORDERED: MAGNESIUM HYDROX 2400MG/30ML ORAL SUSPENSION 30 ML CUP PO PRN (13:55)
[2020-04-26] MEDS ORDERED: BISMUTH SUBSALICYLATE 524 MG/30 ML UD PO PRN (13:55)
[2020-04-26] MEDS ORDERED: cloNIDine HCL 0.1 MG TABLET PO PRN (13:55)
[2020-04-26] MEDS ORDERED: NICOTINE POLACRILEX 2 MG GUM BUC PRN (13:55)
[2020-04-26] MEDS ORDERED: ACETAMINOPHEN 325 MG TABLET (FP) PO PRN (13:55)
[2020-04-26] MEDS ORDERED: MAG HYDROX/AL HYDROX/SIMETH 30 ML UNIT-DOSE CUP PO PRN (13:55)
[2020-04-26] MEDS ORDERED: MAGNESIUM CITRATE 300 ML BOTTLE PO PRN (13:55)
[2020-04-26] MEDS ORDERED: MENTHOL/PHENOL 1 EACH UD MM PRN (13:55)
[2020-04-26] MEDS ORDERED: OXYMETAZOLINE 0.05% NASAL SOLUTION 15 ML BOTTLE NS PRN (13:58)
[2020-04-26] MEDS ORDERED: METHADONE HCL 10 MG TABLET (FOR DETOX USE ONLY) PO ONE (16:00)
[2020-04-26] MEDS: diazePAM 5 MG TABLET PO SCH ×3 (16:57→23:24)
[2020-04-26] MEDS: PRENATAL VITAMINS W/ FOLIC ACID TABLET (FP) PO SCH (16:59)
[2020-04-26] MEDS: IBUPROFEN 400 MG TABLET (FP) PO PRN (16:59)
[2020-04-26] MEDS: hydrOXYzine PAMOATE 25 MG CAPSULE (FP) PO SCH ×3 (17:00→23:24)
[2020-04-26] MEDS: MELATONIN 5 MG TABLETS PO SCH (23:24)
[2020-04-26] MEDS: THIAMINE HCL 100 MG TABLET (FP) PO SCH (23:24)
[2020-04-27] MEDS: diazePAM 5 MG TABLET PO SCH ×3 (05:31→17:04)
[2020-04-27] MEDS: hydrOXYzine PAMOATE 25 MG CAPSULE (FP) PO SCH ×6 (05:32→21:29)
[2020-04-27] MEDS ORDERED: METHADONE HCL 10 MG TABLET (FOR DETOX USE ONLY) ONE (09:09)
[2020-04-27] MEDS ORDERED: METHADONE HCL 5 MG TABLET (FOR DETOX USE ONLY) ONE (09:09)
[2020-04-27] MEDS ORDERED: METHADONE (DETOX) 20 MG, METHADONE (DETOX) 5 MG PO ONE (10:00)
[2020-04-27] MEDS ORDERED: NICOTINE 14 MG/24 HOURS TOPICAL PATCH TD SCH (10:00)
[2020-04-27] MEDS ORDERED: PANTOPRAZOLE 40 MG TABLET PO SCH (10:00)
[2020-04-27] MEDS ORDERED: LIDOCAINE 5% TOPICAL PATCH TP SCH (10:45)
[2020-04-27] MEDS: PRENATAL VITAMINS W/ FOLIC ACID TABLET (FP) PO SCH (10:48)
[2020-04-27] MEDS: METHOCARBAMOL 500 MG TABLET PO PRN ×2 (10:51→17:03)
[2020-04-27] MEDS: ACETAMINOPHEN 325 MG TABLET (FP) PO PRN (17:05)
[2020-04-27] MEDS: IBUPROFEN 400 MG TABLET (FP) PO PRN (21:29)
[2020-04-27] MEDS: THIAMINE HCL 100 MG TABLET (FP) PO SCH (21:29)
[2020-04-27] MEDS: diazePAM 5 MG TABLET PO PRN (21:29)
[2020-04-27] MEDS: MELATONIN 5 MG TABLETS PO SCH (21:32)
[2020-04-27] MEDS ORDERED: LIDOCAINE PATCH REMOVAL MC SCH ×2 (22:00)
[2020-04-28] MEDS: diazePAM 5 MG TABLET PO SCH (00:10)
[2020-04-28] MEDS: ACETAMINOPHEN 325 MG TABLET (FP) PO PRN (01:44)
[2020-04-28] MEDS: diazePAM 5 MG TABLET PO PRN (01:48)
[2020-04-28] MEDS: IBUPROFEN 400 MG TABLET (FP) PO PRN (05:20)
[2020-04-28] MEDS: hydrOXYzine PAMOATE 25 MG CAPSULE (FP) PO SCH (05:22)
[2020-04-28] MEDS ORDERED: diazePAM 5 MG TABLET PO SCH (06:00)
[2020-04-28 09:12] VITALS: BP 129/77; PULSE 81; TEMP 97.7
[2020-04-28] MEDS ORDERED: METHADONE HCL 10 MG TABLET (FOR DETOX USE ONLY) PO ONE (10:00)
[2020-04-29] MEDS ORDERED: diazePAM 5 MG TABLET PO SCH (06:00)
[2020-04-29] MEDS ORDERED: METHADONE (DETOX) 10 MG, METHADONE (DETOX) 5 MG PO ONE (10:00)
[2020-04-30] MEDS ORDERED: diazePAM 5 MG TABLET PO ONE (06:00)
[2020-04-30] MEDS ORDERED: METHADONE HCL 10 MG TABLET (FOR DETOX USE ONLY) PO ONE (10:00)
[2020-05-01] MEDS ORDERED: METHADONE HCL 5 MG TABLET (FOR DETOX USE ONLY) PO ONE (06:00)
== END 2020-04-28 10:00 | disposition left against medical advice (07) | DRG 770 ==
LOC: YASAS 11:57 → Y6N 15:36
PROVIDERS: ADMIT Allergy & Immunology; ATTEND Allergy & Immunology
PROC: HZ2ZZZZ Detoxification Services for Substance Abuse Treatment (ICD-10-PCS; principal; 2020-04-26)
DX: F11.23 Opioid dependence with withdrawal (principal); F10.230 Alcohol dependence with withdrawal, uncomplicated; F13.20 Sedative, hypnotic or anxiolytic dependence, uncomplicated; F17.210 Nicotine dependence, cigarettes, uncomplicated; F19.282 Other psychoactive substance dependence with psychoactive substance-induced sleep disorder; K21.9 Gastro-esophageal reflux disease without esophagitis; M54.5 Low back pain; R60.0 Localized edema; E66.9 Obesity, unspecified; Z68.30 Body mass index [BMI] 30.0-30.9, adult; Z85.828 Personal history of other malignant neoplasm of skin; Z86.69 Personal history of other diseases of the nervous system and sense organs; Z90.49 Acquired absence of other specified parts of digestive tract
CPT/HCPCS: C9803; U0003